=== PATIENT | female | born 1960 | race Caucasian/White ===

== ENCOUNTER → 2022-09-11 15:36 | Outpatient (CLI) | payer BC, SELFPAY ==
--- NOTE | ~2022-09-11 | CT_ITS ---
EXAMINATION: CT lung screening DATE: 09/11/2022 15:51 INDICATION: Nicotine dependence. TECHNIQUE: Computed tomography (CT) of the chest was performed without intravenous contrast. The dose -length product was 63.89 mGy-cm. Automated exposure control and iterative reconstruction technique w ere employed. COMPARISON: None FINDINGS: No significant pleural or pericardial effusion. No thoracic lymphadenopathy. Heart size nor mal. No significant vascular abnormality. There are cholecystectomy clips. There are a few small uppe r lobe nodules measuring 3 no endobronchial lesions. No pneumothorax. No focal airspace consolidation . No acute osseous abnormality. Mm or less. IMPRESSION: 1. Lung-RADS category 2: Benign appearance or behavior. Continue annual screening with noncontrast lo w-dose chest CT in 12 months. Reviewed, dictated and finalized at location A. IMPRESSION: 1. Lung-RADS category 2: Benign appearance or behavior. Continue annual screeni ng with noncontrast low-dose chest CT in 12 months.
== END ==
PROVIDERS: PCP Nurse Practitioner Family; Visit Provider Nurse Practitioner Family
DX: Z12.2 Encounter for screening for malignant neoplasm of respiratory organs (principal); F17.200 Nicotine dependence, unspecified, uncomplicated
CPT/HCPCS: 71271

== ENCOUNTER 2023-04-02 06:44 | Day surgery (SDC) | payer BC, SELFPAY ==
[2023-03-05 13:23] VITALS: BMI 25.8
--- NOTE | 2023-03-31 14:32 | SUR.PREOP ---
Patient called regarding upcoming procedure. Reviewed preop instructions, appointment times, and procedure prep.
--- NOTE | 2023-04-01 13:53 | PM.HPGS ---
History of Present Illness History of Present Illness Consent: Risks, benefits, and alternatives have been discussed and questions answered. Patient agrees to proceed with procedure. Chief complaint: neoplasm screening Narrative: Arpita Atwood is a 62 year old female Referred for colon cancer screening. her last colonoscopy was about 15 years ago. Her father and 1 grandparent have had colon cancer Review of Systems Review of Systems: All systems reviewed & are unremarkable except as noted in HPI and below PMFSH Past Medical History Medical History Depression HTN (hypertension) Social History Social History Smoking packs per day: 0.75 Smoking cigarettes per day: 15.0 Years smoked: 40 Smoking pack-years: 30.00 Smoking status: Current every day smoker Tobacco type: cigarettes Alcohol intake: current Drinks per week: 14 Substance use: current Substance use type: marijuana Other substance usage details: smokes Last use: 03/04/23 Living arrangements: alone Occupation/Education: occupation Gender identity (if verbalized by the patient): Female Meds Home Medications and Allergies Home Medications Medication Instructions Recorded Confirmed Type cetirizine 10 mg capsule (Zyrtec) 10 mg PO DAILY PRN Allergy Symptoms 11/07/21 03/05/23 History amlodipine 5 mg tablet 5 mg PO DAILY #90 tabs 11/20/22 03/05/23 Rx escitalopram oxalate 20 mg tablet 20 mg PO DAILY #90 tabs 11/20/22 03/05/23 Rx (Lexapro) albuterol sulfate 90 mcg/actuation See Rx Instructions .Route 01/06/23 03/05/23 Rx aerosol inhaler .COMPLEX #8.5 ea rosuvastatin 5 mg tablet (Crestor) 5 mg PO .HS #90 tabs 01/22/23 03/05/23 Rx trazodone 50 mg tablet See Rx Instructions .Route 02/16/23 03/05/23 Rx .COMPLEX #90 tabs Allergies Allergy/AdvReac Type Severity Reaction Status Date / Time codeine AdvReac Unknown Nausea Verified 04/02/23 09:43 narcotics AdvReac Gastrointestinal Uncoded 04/02/23 09:43 Upset Exam Resp: Auscultation: clear to auscultation bilaterally Cardio: Rate: regular rate Rhythm: regular rhythm GI: GI Palp: Yes Soft to palpation and No Tenderness to palpation present (GI) Assessment and Plan Assessment and plan (1) Colon cancer screening: Code(s): Z12.11 - Encounter for screening for malignant neoplasm of colon Status: Acute Assessment and Plan: Colonoscopy with possible biopsy or polypectomy or cautery or injection of substances.
[2023-04-02 09:43] VITALS: BP 149/73; PULSE 65; RESP 18; TEMP 36.3; O2SAT 99
[2023-04-02] MEDS: LACTATED RINGERS 1,000 ML 150 ML IV CONT (09:50)
--- NOTE | 2023-04-02 10:25 | P.PNAN_ITS ---
Anes - Initial Pre Proc Eval Procedure: Operation Date: 04/02/23 11:00 Proposed Procedures p Screening Colonoscopy - Cecil Ramirez MD Date/Time: 04/02/23 10:25 Surgeon: Cecil Ramirez MD Pre Op Diagnosis: neoplasm screening Patient Data Age: 62 Gender: F Height: 1.63 m Weight: 67.3 kg Last Vital Signs Temp 97.4 F L 04/02/23 09:43 Pulse 65 04/02/23 09:43 Resp 18 04/02/23 09:43 BP 149/73 H 04/02/23 09:43 Pulse Ox 99 04/02/23 09:43 O2 Del Method Room Air 04/02/23 09:43 Allergies Allergy/AdvReac Type Severity Reaction Status Date / Time codeine AdvReac Unknown Nausea Verified 04/02/23 09:43 narcotics AdvReac Gastrointestinal Uncoded 04/02/23 09:43 Upset Home Medications Medication Instructions Recorded Confirmed Type cetirizine 10 mg capsule (Zyrtec) 10 mg PO DAILY PRN Allergy Symptoms 11/07/21 03/05/23 History amlodipine 5 mg tablet 5 mg PO DAILY #90 tabs 11/20/22 03/05/23 Rx escitalopram oxalate 20 mg tablet 20 mg PO DAILY #90 tabs 11/20/22 03/05/23 Rx (Lexapro) albuterol sulfate 90 mcg/actuation See Rx Instructions .Route 01/06/23 03/05/23 Rx aerosol inhaler .COMPLEX #8.5 ea rosuvastatin 5 mg tablet (Crestor) 5 mg PO .HS #90 tabs 01/22/23 03/05/23 Rx trazodone 50 mg tablet See Rx Instructions .Route 02/16/23 03/05/23 Rx .COMPLEX #90 tabs Patient hx anesthesia problems: none Family hx anesthesia problems: none Results Review: All pre-operative results and documents have been reviewed as part of the pre- operative evaluation. [facility] Past Medical History Medical History Depression HTN (hypertension) Social History Social History Smoking packs per day: 0.75 Smoking cigarettes per day: 15.0 Years smoked: 40 Smoking pack-years: 30.00 Smoking status: Current every day smoker Tobacco type: cigarettes Alcohol intake: current Drinks per week: 14 Substance use: current Substance use type: marijuana Other substance usage details: smokes Last use: 03/04/23 Living arrangements: alone Occupation/Education: occupation Gender identity (if verbalized by the patient): Female Anes - Eval Final PreProcedure Day of Procedure 04/02/23 10:25 Patient weight: normal Heart: regular rate and rhythm Lungs: clear to auscultation Airway: Mallampati scale class II Neurological: alert and oriented Last oral intake: >/= 8 hours ASA classification: II Emergent: no Anesthetic plan: proceed Anesthesia type and monitoring: general GIVS and standard monitoring Results Review: All pre-operative results and documents have been reviewed as part of the pre- operative evaluation. Informed Consent: The patient's anesthetic plan and its attendant risks and benefits were discussed with the patient/family/POA. Questions were solicited and answers provided to the satisfaction of the patient/family/POA.
[2023-04-02] MEDS: SIMETHICONE ORAL SUSPENSION 20 MG/0.3 ML 30 ML BOTTLE 0.6 ML IRRIGATION (10:48)
[2023-04-02 11:00] VITALS: BP 98/69; PULSE 69; RESP 22; O2SAT 100
[2023-04-02 11:10] VITALS: BP 111/67; PULSE 76; RESP 20; O2SAT 100
[2023-04-02 11:20] VITALS: BP 154/68; PULSE 63; RESP 20; O2SAT 100
== END 2023-04-02 11:25 | disposition home or self-care (01) ==
PROVIDERS: PCP Nurse Practitioner Family; Visit Provider Internal Medicine Gastroenterology
PROC: 0DJD8ZZ Inspection of Lower Intestinal Tract, Via Natural or Artificial Opening Endoscopic (ICD-10-PCS; CPT 45378; principal; 2023-04-02 11:00)
DX: Z12.11 Encounter for screening for malignant neoplasm of colon (principal); D12.5 Benign neoplasm of sigmoid colon; D12.2 Benign neoplasm of ascending colon; D12.3 Benign neoplasm of transverse colon; K57.30 Diverticulosis of large intestine without perforation or abscess without bleeding; Z80.0 Family history of malignant neoplasm of digestive organs; I10 Essential (primary) hypertension; F32.A Depression, unspecified; Z79.51 Long term (current) use of inhaled steroids; F17.210 Nicotine dependence, cigarettes, uncomplicated; F12.90 Cannabis use, unspecified, uncomplicated
CPT/HCPCS: 45385; 88305; J2704; J7120

== ENCOUNTER 2023-10-25 12:40 | Emergency (ER) | payer OTHER, SELFPAY ==
--- NOTE | ~2023-10-25 | XR_ITS ---
EXAMINATION: [id number] DATE: 10/25/2023 13:11 INDICATION: Left rib pain. Fall. TECHNIQUE: A frontal view of the chest and 2 views on 3 radiographs of the left ribs were obtained. COMPARISON: Chest 2 views 07/21/2023, chest CT 09/11/2022 FINDINGS: There is no pneumonia, pleural effusion, or pneumothorax. The heart size is normal. Surgica l clips in the right upper quadrant are likely from cholecystectomy. There is no rib fracture. IMPRESSION: 1. No rib fracture. Reviewed, dictated and finalized at location A. IMPRESSION: 1. No rib fracture.
--- NOTE | 2023-10-25 12:47 | ED.GENADULT ---
HPI - General Adult General Chief complaint: Fall Stated complaint: SOB / LT Rib Pain Time Seen by Provider: 10/25/23 13:00 Source: patient, RN notes reviewed and old records reviewed Mode of arrival: ambulatory Limitations: no limitations History of Present Illness HPI narrative: 62 year female presents to the [facility] with left anterior and lateral lower rib pain after tripping and falling a couple of days ago. States that she tripped over her dog. Denies any back or neck pain. Denies any loss of consciousness Related Data Home Medications Medication Instructions Recorded Confirmed cetirizine 10 mg capsule (Zyrtec) 10 mg PO DAILY PRN Allergy Symptoms 11/07/21 10/25/23 Allergies Allergy/AdvReac Type Severity Reaction Status Date / Time codeine AdvReac Unknown Nausea Verified 10/25/23 12:54 narcotics AdvReac Gastrointestinal Uncoded 10/25/23 12:54 Upset Review of Systems Review of Systems: All systems reviewed & are unremarkable except as noted in HPI and below Constitutional: Constitutional: Reports no additional constitutional complaints Eyes: Eyes: Reports no additional eye complaints ENT: Reports system reviewed and no additional complaints, except as documented Cardiovascular: Cardiovascular: Reports no additional cardiovascular complaints, Denies chest pain and Denies dyspnea Respiratory: Respiratory: Reports no additional respiratory complaints, Denies chest congestion, Denies cough and Denies dyspnea Gastrointestinal: Gastrointestinal: Reports no additional gastrointestinal complaints, Denies abdominal pain, Denies nausea and Denies vomiting Musculoskeletal: Musculoskeletal: Reports as per HPI Integumentary/Breasts: Skin/Breast: Reports system reviewed and no additional complaints, except as docu Neurologic: Reports system reviewed and no additional complaints, except as documented Psychiatric: Psychiatric: Reports no additional psychiatric complaints Allergic/Immunologic: Allergic/Immunologic: Reports no additional allergic/immunologic complaints [facility] Past Medical History Medical History Depression HTN (hypertension) Social History Social History Smoking packs per day: 0.75 Smoking cigarettes per day: 15.0 Years smoked: 40 Smoking pack-years: 30.00 Smoking status: Current every day smoker Tobacco type: cigarettes Alcohol intake: current Drinks per week: 14 Substance use: current Substance use type: marijuana Other substance usage details: smokes Last use: 03/04/23 Living arrangements: alone Occupation/Education: occupation Gender identity (if verbalized by the patient): Female Comments At the time of my signature, I reviewed and agree with the nursing past medical, surgical, social, and family history. There is no relevant family history pertinent to the patient complaint. Exam Const: General: cooperative, healthy appearing, comfortable, no acute distress, well developed, alert and well nourished Nutritional Appearance: well nourished Orientation/consciousness: patient oriented x3 Limitations: no limitations HENMT: Head: normal to inspection Ears: hearing grossly normal bilaterally and external ears normal Face/Nose/Sinus: Normal external nose present, Normal nares present, Normal nasal mucous membranes and turbinates present, normal facial exam and face symmetric Face and sinus: normal facial exam and face symmetric Eyes: General: appearance normal, both eyes and all related structures Alignment and Position: alignment normal Periorbital: periorbital findings normal Neck: Neck: normal visual inspection, full ROM, no lymphadenopathy and no meningeal signs Chest: Chest palpation & inspection: normal inspection of the chest Chest/axillae images: 1. Tenderness without bruising, mild swelling noted. No ecchymoses Resp: Effort
[2023-10-25 12:53] VITALS: BP 153/88; PULSE 79; RESP 16; TEMP 37.3; O2SAT 98
[2023-10-25 12:54] VITALS: BP 153/88; PULSE 79; RESP 16; TEMP 37.3; O2SAT 98
== END 2023-10-25 13:38 | disposition home or self-care (01) ==
PROVIDERS: Emergency Provider Nurse Practitioner
DX: S20.212A Contusion of left front wall of thorax, initial encounter (principal); W19.XXXA Unspecified fall, initial encounter; I10 Essential (primary) hypertension; F17.210 Nicotine dependence, cigarettes, uncomplicated
CPT/HCPCS: 71101; 99213; G0463